=== PATIENT | female | born 1960 | race Caucasian/White ===

== ENCOUNTER → 2020-08-06 11:06 | Outpatient (CLI) | payer BC, SELFPAY ==
--- NOTE | ~2020-08-06 | DEXA_ITS ---
Bone Density Report Name: Rizwana Soliman Age: 60 Sex: Female Ethnicity: White Date of : 1960 Indication: osteopenia; history of glucocorticoids; postmenopausal Referring Provider: JUDSON MIRELES Study: Bone densitometry was performed. Exam Date: August 06, 2020 Accession number: [id number] Bone Density: Region BMD T-score Z-score Classification AP Spine (L1-L4) 0.841 -1.9 -0.3 Osteopenia Femoral Neck (Left) 0.592 -2.3 -0.9 Osteopenia Total Hip (Left) 0.775 -1.4 -0.3 Osteopenia Femoral Neck (Right) 0.567 -2.5 -1.2 Osteoporosis Total Hip (Right) 0.763 -1.5 -0.4 Osteopenia Total Hip Mean 0.769 -1.5 -0.4 Osteopenia World Health Organization criteria for BMD impression classify patients as: Normal (T-score at or above -1.0), Osteopenia (T-score between -1.0 and -2.5), or Osteoporosis (T-score at or below -2.5). 10-year Fracture Risk: FRAX not reported because: Some T-score for Spine Total or Hip Total or Femoral Neck at or below -2.5 Previous Exams: Region Exam Age BMD T-score BMD Change BMD Change Date g/cm2 vs Baseline vs Previous AP Spine(L1-L4) 08/06/2020 60 0.841 -1.9 -0.202* -0.090* 05/03/2018 57 0.931 -1.1 -0.112* -0.019 04/29/2016 55 0.951 -0.9 -0.093* -0.093* 03/29/2012 51 1.043 0.0 Total Hip(Left) 08/06/2020 60 0.775 -1.4 -0.112* -0.033* 05/03/2018 57 0.808 -1.1 -0.079* 0.007 04/29/2016 55 0.801 -1.2 -0.086* -0.086* 03/29/2012 51 0.887 -0.5 Total Hip(Right) 08/06/2020 60 0.763 -1.5 -0.127* -0.019 05/03/2018 57 0.782 -1.3 -0.108* -0.015 04/29/2016 55 0.797 -1.2 -0.093* -0.093* 03/29/2012 51 0.890 -0.4 *Denotes significance at 95% confidence level, LSC for AP Spine = 0.022 g/cm2, LSC for Total Hip = 0.027 g/cm2 Clinical Information Provided by Patient: Has taken Glucocorticoids Has used the following medications: Vitamin D, Calcium Patient maximum height was 65.7 Menopause Age: 50 Does not regularly consume dairy products Drinks caffeinated beverages Onset of menses at age 11 Number of children 0 Impression: The patient has osteoporosis, based on the Right Femoral Neck T-score. The patient has risk factors, including: history of glucocorticoid therapy. The BMD for the AP Spine(L1-L4) decreased, changing by -0.090 since the last D
== END ==
PROVIDERS: PCP Internal Medicine; Visit Provider Obstetrics & Gynecology Gynecology
DX: Z78.0 Asymptomatic menopausal state (principal); M85.89 Other specified disorders of bone density and structure, multiple sites; M81.0 Age-related osteoporosis without current pathological fracture
CPT/HCPCS: 77080

== ENCOUNTER 2022-02-19 14:08 | Emergency (ER) | payer BC, SELFPAY ==
--- NOTE | ~2022-02-19 | XR_ITS ---
EXAMINATION: XR wrist RT min 3V DATE: 02/19/2022 14:23 INDICATION: Right wrist pain post fall TECHNIQUE: Posteroanterior, ulnar deviation, oblique, and lateral views of the right wrist were obtai eitan. COMPARISON: none FINDINGS: Bone alignment is normal. No fracture. Polyarticular osteoarthritis, mild at the wrist, first carpome tacarpal, first metacarpophalangeal, first interphalangeal, third-fifth proximal interphalangeal and second distal interphalangeal joints and moderate severity at the third-fifth distal interphalangeal joints. Soft tissues are unremarkable. IMPRESSION: 1. Mild to moderate polyarticular osteoarthritis at the right hand. No acute osseous abnormality. Reviewed, dictated and finalized at location A. IMPRESSION: 1. Mild to moderate polyarticular osteoarthritis at the right hand. No acute os seous abnormality.
--- NOTE | 2022-02-19 14:16 | ED.UPPEXIN ---
HPI - Extremity Injury (Upper) General Chief Complaint: Extremity Injury, Upper Stated Complaint: right wrist injury Source: patient Mode of arrival: ambulatory Limitations: no limitations History of Present Illness HPI narrative: 61 y/o female presented for c/o right wrist pain after falling 5 days ago. She tripped on sidewalk and fell forward, catching herself with the right arm and landing on the left hip. States at the onset, she had swelling and bruising which has improved. Denies numbness tingling or weakness. Pain is minimal and does not require any medication. Denies any other concerns. Related Data Home Medications Medication Instructions Recorded Confirmed calcium-vitamin D2-iron tablet tablet PO 08/27/20 08/29/20 elderberry fruit 200 mg capsule mg PO 08/27/20 08/29/20 ergocalciferol (vitamin D2) 50 mcg 50 mcg PO DAILY 08/27/20 08/29/20 (2,000 unit) capsule blxydyhqczzc-nthffqxr-plnhgf tablet 1 tablet PO DAILY 08/27/20 08/29/20 omega-3 fatty acids 1,000 mg 1,000 mg PO DAILY 08/27/20 08/29/20 capsule (Fish Oil Concentrate) risedronate 35 mg tablet mg PO 02/19/22 Allergies Allergy/AdvReac Type Severity Reaction Status Date / Time No Known Allergies Allergy Unverified 08/27/20 14:03 Review of Systems Review of Systems: CONSTITUTIONAL: Denies body aches, fever, chills CARDIOVASCULAR: Denies chest pain, palpitations, or edema. RESPIRATORY: Denies cough or dyspnea. SKIN: Denies rash, itching, or wounds. MUSCULOSKELETAL: reports right wrist pain NEUROLOGIC: Denies headache, numbness, tingling, or weakness. All systems reviewed & are unremarkable except as noted in HPI and below PMFSH Family History Family History Father Hypertension Heart disease Mother Cancer Sibling Hypertension Depression Grandparent Cancer Social History Social History Smoking status: Never smoker Alcohol intake: current Substance use: never Comments At time of signature, I have reviewed and agree with nursing past medical, surgical, social and family history unless otherwise noted. Please see nursing chart for further information. There is no relevant family history pertinent to the presenting complaint Exam Narrative: CONSTITUTIONAL: well-nourished. CHEST: Speaks in full sentences. No respiratory distress. HEART: Regular rate and rhythm. Normal and equal peripheral pulses. EXTREMITIES: Dorsal surface of right wrist with approx 1cm diameter bruising. Right hand has normal strength and sensation, normal range of motion at wrist. No swelling, point tenderness, or obvious deformity; pulse palpable and equal bilaterally, skin warm, dry, pink. Capillary refill less than 3 seconds. SKIN: Warm, dry, no rash. NEURO: Alert and oriented x3. PSYCH: Normal mood and affect Course Course Emergency Course: Patient is aware of diagnosis, understands and agrees to treatment plan. Anticipatory guidance given. Patient agrees to follow-up as directed and is aware of reasons to seek care at the emergency department. Portions of this record may have been created with voice recognition software Level of Care: Express Care Visit Vital Signs Vital signs: Reviewed MDM - Extremity Injury (Upper) MDM Narrative Medical decision making narrative: Xray reviewed with pt. Advised supportive measures and s/s to go to the ER. No concern for tendon or nerve injury. Patient is treatable on an outpatient basis. Differential Diagnosis Differential diagnosis: Likely sprain and strain of wrist, fracture of wrist and fracture of hand Imaging Data Radiologist's impression: [facility] [address] [place], [place] [address] XRay Report Signed Patient: Rizwana Soliman : 1960 MR#: [id number] Age/Sex: 61 / F Acct:[id number] Loc: [facility]? ? ADM Date: 02/19/22Attendi
[2022-02-19 14:23] VITALS: BP 112/77; PULSE 94; RESP 16; TEMP 37.2; O2SAT 100
== END 2022-02-19 14:42 | disposition home or self-care (01) ==
PROVIDERS: Emergency Provider Nurse Practitioner Family; PCP Internal Medicine
DX: S60.211A Contusion of right wrist, initial encounter (principal); W18.09XA Striking against other object with subsequent fall, initial encounter; M85.80 Other specified disorders of bone density and structure, unspecified site
CPT/HCPCS: 73110; 99213; G0463

== ENCOUNTER → 2022-09-17 10:16 | Outpatient (CLI) | payer BC, SELFPAY ==
--- NOTE | ~2022-09-17 | DEXA_ITS ---
Bone Density Report Name: VINICIO KEYES Age: 62 Sex: Female Ethnicity: White Date of : 1960 Indication: osteopenia; monitoring treatment; history of glucocorticoids; postmenopausal Referring Provider: JUDSON MIRELES Study: Bone densitometry was performed. Exam Date: September 17, 2022 Accession number: [id number] Bone Density: Region BMD T-score Z-score Classification AP Spine (L1-L4) 0.884 -1.5 0.2 Osteopenia Femoral Neck (Left) 0.566 -2.6 -1.1 Osteoporosis Total Hip (Left) 0.812 -1.1 0.1 Osteopenia Femoral Neck (Right) 0.578 -2.4 -1.0 Osteopenia Total Hip (Right) 0.785 -1.3 -0.1 Osteopenia Total Hip Mean 0.799 -1.2 0.0 Osteopenia World Health Organization criteria for BMD impression classify patients as: Normal (T-score at or above -1.0), Osteopenia (T-score between -1.0 and -2.5), or Osteoporosis (T-score at or below -2.5). 10-year Fracture Risk: FRAX not reported because: Some T-score for Spine Total or Hip Total or Femoral Neck at or below -2.5 Treated for osteoporosis Previous Exams: Region Exam Age BMD T-score BMD Change BMD Change Date g/cm2 vs Baseline vs Previous AP Spine(L1-L4) 09/17/2022 62 0.884 -1.5 -0.159* 0.043* 08/06/2020 60 0.841 -1.9 -0.202* -0.090* 05/03/2018 57 0.931 -1.1 -0.112* -0.019 04/29/2016 55 0.951 -0.9 -0.093* -0.093* 03/29/2012 51 1.043 0.0 Total Hip(Left) 09/17/2022 62 0.812 -1.1 -0.075* 0.037* 08/06/2020 60 0.775 -1.4 -0.112* -0.033* 05/03/2018 57 0.808 -1.1 -0.079* 0.007 04/29/2016 55 0.801 -1.2 -0.086* -0.086* 03/29/2012 51 0.887 -0.5 Total Hip(Right) 09/17/2022 62 0.785 -1.3 -0.105* 0.022 08/06/2020 60 0.763 -1.5 -0.127* -0.019 05/03/2018 57 0.782 -1.3 -0.108* -0.015 04/29/2016 55 0.797 -1.2 -0.093* -0.093* 03/29/2012 51 0.890 -0.4 *Denotes significance at 95% confidence level, LSC for AP Spine = 0.022 g/cm2, LSC for Total Hip = 0.027 g/cm2 Clinical Information Provided by Patient: Has taken Glucocorticoids Is being treated for osteoporosis Has used the following medications: Actonel (i.e. risedronate), Vitamin D, MULT VIT Patient maximum height was 65 Menopause Age: 50 Drinks caffeinated beverages Onset of menses at age 11 Number of children 0
== END ==
PROVIDERS: PCP Internal Medicine; Visit Provider Obstetrics & Gynecology Gynecology
DX: Z78.0 Asymptomatic menopausal state (principal); M85.89 Other specified disorders of bone density and structure, multiple sites; M81.0 Age-related osteoporosis without current pathological fracture
CPT/HCPCS: 77080

== ENCOUNTER 2024-12-05 13:33 | Outpatient (CLI) | payer MEDICARE, SELFPAY ==
--- NOTE | ~2024-12-05 | DEXA_ITS ---
Bone Density Report Name: VINICIO KEYES Age: 64 Sex: Female Ethnicity: White Date of : 1960 Indication: osteopenia; monitoring treatment; inflammatory bowel disease; history of glucocorticoids; secondary osteoporosis; Referring Provider: JUDSON MIRELES Study: Bone densitometry was performed. Exam Date: December 05, 2024 Accession number: [id number] Bone Density: Region BMD T-score Z-score Classification AP Spine(L1-L4) 0.884 -1.5 0.4 Osteopenia Femoral Neck (Left) 0.565 -2.6 -1.0 Osteoporosis Total Hip (Left) 0.810 -1.1 0.2 Osteopenia Femoral Neck (Right) 0.590 -2.3 -0.8 Osteopenia Total Hip (Right) 0.779 -1.3 0.0 Osteopenia Total Hip Mean 0.795 -1.2 0.1 Osteopenia World Health Organization criteria for BMD impression classify patients as: Normal (T-score at or above -1.0), Osteopenia (T-score between -1.0 and -2.5), or Osteoporosis (T-score at or below -2.5). 10-year Fracture Risk: FRAX not reported because: Some T-score for Spine Total or Hip Total or Femoral Neck at or below -2.5 Treated for osteoporosis Previous Exams: -- Region Exam Age BMD T-score BMD Change BMD Change Date g/cm2 vs Baseline vs Previous -- AP Spine (L1-L4) 12/05/2024 64 0.884 -1.5 -15.3%* 0.0% 09/17/2022 62 0.884 -1.5 -15.3%* 5.1%* 08/06/2020 60 0.841 -1.9 -19.4%* -9.7%* 05/03/2018 57 0.931 -1.1 -10.7%* -2.0% 04/29/2016 55 0.951 -0.9 -8.9%* -8.9%* 03/29/2012 51 1.043 0.0 Total Hip(Left) 12/05/2024 64 0.810 -1.1 -8.6%* -0.2% 09/17/2022 62 0.812 -1.1 -8.4%* 4.8%* 08/06/2020 60 0.775 -1.4 -12.6%* -4.1%* 05/03/2018 57 0.808 -1.1 -8.9%* 0.9% 04/29/2016 55 0.801 -1.2 -9.7%* -9.7%* 03/29/2012 51 0.887 -0.5 Total Hip(Right) 12/05/2024 64 0.779 -1.3 -12.5%* -0.8% 09/17/2022 62 0.785 -1.3 -11.8%* 2.9% 08/06/2020 60 0.763 -1.5 -14.3%* -2.4% 05/03/2018 57 0.782 -1.3 -12.1%* -1.9% 04/29/2016 55 0.797 -1.2 -10.5%* -10.5%* 03/29/2012 51 0.890 -0.4 -- *Denotes significance at 95% confidence level, LSC for AP Spine = 0.022 g/cm2, LSC for Total Hip = 0.027 g/cm2 Clinical Information Provided by Patient: Has taken Glucocorticoids Has secondary osteoporosis Is being treated for osteoporosis Has used the following medications: Actonel (i.e. risedronate), Fosamax (i.e. alendronate), HRT (i.e. estrogen/hormone therapy), Vitamin D, Calcium Has the following medical conditions: Inflammatory bowel diseases Patient maximum height was 65.1 Menopause Age: 50 Drinks caffeinated beverages Onset of menses at age 10 Number of children 0 Impression: The patient has osteoporosis, based on the Left Femoral Neck T-score. The patient has risk factors, including: history of glucocorticoid therapy. No significant bone loss was observed. Discussion: PATIENT UNDER TREATMENT WITH NO SIGNIFICANT BMD LOSS SINCE LAST EXAM. In an untreated patient, BMD typically declines with age. A lack of decline or gain is usually a sign that treatment is efficacious and fracture risk is reduced. It is important to ask patients whether they are taking their medications and to encourage continued and appropriate compliance with their osteoporosis therapies to reduce fracture risk. It is also important to review their risk factors and encourage appropriate calcium and vitamin D intakes, exercise, fall prevention and other lifestyle measures. Follow-Up: Consider a repeat BMD and Vertebral Fracture Assessment (VFA) exam in 2 years or sooner if medically necessary, to reassess this patient's status. Reported by: JOEL on 12/05/2024 2:09:00 PM. Reviewed, dictated and finalized at location A.
== END 2024-12-05 13:34 | disposition home or self-care (01) ==
PROVIDERS: PCP Internal Medicine; Visit Provider Obstetrics & Gynecology Gynecology
DX: Z78.0 Asymptomatic menopausal state (principal); M85.89 Other specified disorders of bone density and structure, multiple sites; M81.0 Age-related osteoporosis without current pathological fracture
CPT/HCPCS: 77080